=== PATIENT | female | born 1990 | race Caucasian/White ===

== ENCOUNTER → 2017-03-24 | Outpatient (CLI) | payer OTHER ==
[~2017-03-24] MED LIST: ATIVAN PO; B COMPLEX1 EACH PO; CITALOPRAM HBR40 MG PO; EFFEXOR75 M3 PO; LEVAQUIN PO; LEXAPRO PO; LOESTRIN1 TA1 PO; LORTAB 5/500 TA1 TA1 PO; SEROQUEL PO; WELLBUTRIN PO
--- NOTE | ~2017-03-24 | US6 ---
[facility] A Service of [facility] RADIOLOGY TEXT RESULTS PATIENT: ANTHONY KHAN LOCATION: [facility] : [birth year] UNIT #: [id number] AGE: [address]: Mann Celis MD SEX: F ORDER DR: [id number] [facility] [address] [place], [place] [address] [id number] O MR#: [id number] Acc #: [id number] NAME: ANTHONY KHAN : 1990 SEX: F STUDY DATE/TIME: 03/24/2017 10:23 UNIT: [facility] ROOM: STUDY DESCRIPTION: US Abdominal Limited Attending Physician: Mann Celis M.D. Ordering Physician: Mann Celis M.D. Primary Care Physician: Linda Valles M.D. MEDICAL IMAGING REPORT This report is preliminary unless electronic signature is present EXAM Right upper quadrant ultrasound, 03/24/2017 INDICATION 26-year-old female with abdominal pain extending into the back, fever, nausea, vomiting, cold sweats. Symptoms 6 months, increasing symptoms since Monday. Nausea, vomiting, abdominal distension and bloating. TECHNIQUE Sonographic imaging of the right upper quadrant was performed. COMPARISON Correlation is made with CT 04/20/2015. FINDINGS The pancreas was obscured by bowel gas and not well visualized or assessed. The liver measures 15.0 cm long axis. No focal liver mass, ascites or intrahepatic ductal dilatation. The right kidney is nonobstructed measuring 11.4 cm long axis. The gallbladder demonstrates numerous shadowing stones. No sonographic Neely's sign was described by the technologist. This was confirmed by the technologist at the conclusion of the examination. No pericholecystic fluid or gallbladder wall thickening. Extrahepatic common bile duct measures 3.0 mm. IMPRESSION 1. Cholelithiasis without ultrasound evidence of acute cholecystitis. No intra or extrahepatic biliary ductal dilatation. Findings called to Dr. Celis as requested at the time of this dictation. 2. Pancreas not visualized or assessed. [facility] A Service of [facility] RADIOLOGY TEXT RESULTS PATIENT: ANTHONY KHAN LOCATION: [facility] : [birth year] UNIT #: [id number] AGE: [address]: Mann Celis MD SEX: F ORDER DR: STAT * RESULT Dictated by... Sergio Jacinto M.D. THIS IS AN ELECTRONICALLY VERIFIED REPORT Sergio Jacinto M.D. at 03/24/2017 5:22 PM Calin TD: 03/24/2017 10:53 JOB #: [id number] MEDICAL IMAGING REPORT Page 1 of 1 COPY
== END | disposition home or self-care (01) ==
LOC: CWCC 10:04
DX: R10.9 Unspecified abdominal pain (principal); K80.20 Calculus of gallbladder without cholecystitis without obstruction
CPT/HCPCS: 76705

== ENCOUNTER → 2017-03-28 | Day surgery (SDC) | payer OTHER ==
--- NOTE | ~2017-03-28 | OR ---
Unit #: [id number] #: [id number] Patient: ANTHONY KHAN [id number] [facility] [address] [place], [place] [address] [id number] O MR#: [id number] NAME: ANTHONY KHAN ROOM: Date of Procedure: 03/28/2017 Admission Date: 03/28/2017 Surgeon: Cooper Jones M.D. : 1990 Attending Physician: Cooper Jones M.D. Primary Care Physician: Linda Valles M.D. OPERATIVE REPORT PREOPERATIVE DIAGNOSES Chronic cholecystitis with cholelithiasis. POSTOPERATIVE DIAGNOSIS Chronic cholecystitis with cholelithiasis. PROCEDURE PERFORMED Laparoscopic cholecystectomy. ANESTHESIA General endotracheal anesthesia. ESTIMATED BLOOD LOSS Less than 10 mL. INDICATIONS FOR PROCEDURE A 26-year-old female with progressive right upper quadrant pain radiating to the back and associated nausea and vomiting. Ultrasound revealed cholelithiasis with normal biliary ductal system. The patient denied fever, chills, or jaundice. DESCRIPTION OF PROCEDURE The patient was admitted to [facility], positively identified, and transported to the operating room, and after induction of general endotracheal anesthesia, she was prepped and draped in usual sterile fashion. She received antibiotics per SCIP protocol and SCDs were placed. A 5-mm supraumbilical incision was made. Veress needle was placed. Pneumoperitoneum was created. Then, a 5-mm trocar was placed. Laparoscope was introduced into the peritoneal cavity under direct vision. The epigastric and lateral ports were placed. Gallbladder was grasped and elevated. Adhesions were stripped away until the infundibulum could be identified and retracted laterally. Spelter of [place]ot was dissected out, clearly identifying the cystic duct, gallbladder, and cystic duct-common duct junction. The cystic duct was swept upwards into the gallbladder and then a single clip was placed in the cystic duct centered to gallbladder. Three clips were placed distally and the cystic duct was sharply divided. The posteriorly placed cystic artery was doubly clipped proximally and distally and divided. I then dissected the gallbladder liver bed using cautery dissection and once it was freed up from its hepatic attachments, it was brought out through the epigastric port. There was good hemostasis. The clips were well positioned. The epigastric fascial defect was closed using a neoClose device and the closure was airtight. I Unit #: [id number] #: [id number] Patient: ANTHONY KHAN then reduced the pneumoperitoneum as I removed laparoscope and trocars. 0.5% Marcaine with epinephrine was infiltrated in each trocar site. The skin was closed with 4-0 Monocryl subcuticular closure and Dermabond skin adhesive. The patient was transported to Recovery in stable condition. Findings and postoperative instructions were discussed with her family. Dictated by... Livier Kee/nicky TD: 03/28/2017 15:05 JOB #: [id number] OPERATIVE REPORT Page 1 of 1 X Cooper Jones MD PROCEDURE OPERATIVE NOTE
[2017-03-28 11:38] LABS: HEMATOCRIT 38.3 % (35.0-45.0); HEMOGLOBIN 12.9 gm/dL (12.0-16.0); MEAN CELL VOLUME 94.9 FL (83-96); MEAN CORPUSCULAR HEMOGLOBIN 31.8 PG (28-34); MEAN CORPUSCULAR HGB CONC 33.6 g/dL (30-36); MEAN PLATELET VOLUME 8.3 FL (6.5-11.5); RED BLOOD COUNT 4.04 X10e (3.90-5.30); RED CELL DISTRIBUTION WIDTH 13.4 % (11.0-15.5); WHITE BLOOD COUNT 6.7 X10e3 (4.0-10.5)
[2017-03-28 12:11] LABS: ALBUMIN SERUM 4.1 g/dL (3.5-5.0); BILIRUBIN,TOTAL 0.4 mg/dL (0.2-2.0); CALCIUM SERUM 9.2 mg/dL (8.4-10.2); CREATININE SERUM 0.5 mg/dL (0.6-1.4); GLOM FILT RATE Estimated 133.6 mL/min (>60); POTASSIUM 4.1 mmol/L (3.5-5.1)
== END | disposition home or self-care (01) ==
LOC: CSUR 10:09
PROVIDERS: Specialist
DX: K80.10 Calculus of gallbladder with chronic cholecystitis without obstruction (principal); Z88.8 Allergy status to other drugs, medicaments and biological substances; Z79.899 Other long term (current) drug therapy
CPT/HCPCS: 80053; 84703; 85027; 88304; J0330; J0690; J1100; J1885; J2250; J2270; J2405; J2550; J2710; J3010